=== PATIENT | male | born 2000 | race Caucasian/White ===

== ENCOUNTER 2018-05-07 00:04 | Emergency (ER) | payer BC ==
[2018-05-07 00:21] VITALS: RESP 20
--- NOTE | 2018-05-07 01:17 | ED ---
General Adult HPI - General Chief complaint: Recheck/Abnormal Lab/Rx Stated complaint: Exposure to propane leak Source: patient Mode of arrival: ambulatory Limitations: no limitations - Related Data Allergies Allergy/AdvReac Type Severity Reaction Status Date / Time No Known Allergies Allergy Verified 05/07/18 00:21 Review of Systems ROS Statement: Those systems with pertinent positive or pertinent negative responses have been documented in the HPI. ROS Other: All systems not noted in ROS Statement are negative. Past Medical History Past Medical History: No Reported History History of Any Multi-Drug Resistant Organisms: None Reported Past Surgical History: No Surgical Hx Reported Past Psychological History: Anxiety, Depression Smoking Status: Never smoker Past Alcohol Use History: None Reported Past Drug Use History: None Reported General Exam Limitations: no limitations Course Vital Signs 05/07/18 00:16 Temperature 98.5 F Pulse Rate 95 Respiratory 20 Rate Blood Pressure 141/83 O2 Sat by Pulse 97 Oximetry Medical Decision Making - Medical Decision Making Dictation was produced using [employer] dictation software. please excuse any grammatical, word or spelling errors. Chief Complaint: 17-year-old male past history of asthma presents with possible carbon monoxide poisoning. History of Present Illness: His 17-year-old male presents with possible carbon monoxide poisoning he is here today with his family at 5. Everybody has been having issues. Everyone has been having various episodes of headache, skin flushing and dyspnea. Given having trouble with the landlord. The ROS documented in this emergency department record has been reviewed and confirmed by me. Those systems with pertinent positive or negative responses have been documented in the HPI. All other systems are other negative and/or noncontributory. PHYSICAL EXAM: General Impression: Alert and oriented x3, not in acute distress HEENT: Normocephalic atraumatic, extra-ocular movements intact, pupils equal and reactive to light bilaterally, mucous membranes moist. Cardiovascular: Heart regular rate and rhythm, S1&S2 audible, no murmurs, rubs or gallops Chest: Lungs clear to auscultation bilaterally, no rhonchi, no wheeze, no rales Abdomen: Bowel sounds present, abdomen soft, non-tender, non-distended, no organomegaly Musculoskeletal: Pulses present and equal in all extremities, no peripheral edema Motor: Power 5/5 bilaterally, no focal deficits noted Neurological: CN II-XII grossly intact, no focal motor or sensory deficits noted Skin: Intact with no visualized rashes Psych: Normal affect and mood ED course: Patient is 17-year-old male presents with his family for possible carbon monoxide. Current monoxide level is 1.2. Patient is a nonsmoker. Venous blood gas is unremarkable. Patient denies any symptoms at this time. Fire department was contacted for further home evaluation. Patient and family will likely stay at a hotel until home is safe for return. - Lab Data Lab Results 05/07/18 05/07/18 Range/Units 01:17 01:17 VBG pH 7.35 (7.31-7.41) VBG pCO2 49 (37-51) mmHg VBG HCO3 26 (24-28) mmol/L Carbon Monoxide, Quant 1.2 (<10.0) % Disposition Clinical Impression: Carbon monoxide exposure Disposition: HOME SELF-CARE Condition: Good Instructions (If sedation given, give patient instructions): Carbon Monoxide Poisoning in Children (ED) Is patient prescribed a controlled substance at d/c from ED?: No Referrals: None,Stated [Primary Care Provider] - 1-2 days Time of Disposition: 01:50
[2018-05-07 01:28] LABS: VBG PH 7.35 (7.31-7.41)
--- NOTE | 2018-05-07 01:30 | XR ---
EXAMINATION TYPE: XR chest 2V DATE OF EXAM: 05/07/2018 COMPARISON: NONE HISTORY: Inhaled propane TECHNIQUE: Frontal and lateral views of the chest are obtained. FINDINGS: Heart and mediastinum are normal. Lungs are clear. Diaphragm is normal. Bony thorax is int act. Pulmonary vascularity is normal. IMPRESSION: Normal chest.
[2018-05-07 02:06] VITALS: BP 139/80; PULSE 87; TEMP 97.3
== END 2018-05-07 02:06 | disposition home or self-care (01) ==
LOC: EC 00:04
DX: Z57.5 Occupational exposure to toxic agents in other industries (principal); R51 Headache; R06.00 Dyspnea, unspecified
CPT/HCPCS: 71046; 82375; 82803; 99283